=== PATIENT | female | born 1955 | race American Indian/Alaskan Native ===

== ENCOUNTER 2018-04-01 08:18 | Outpatient (CLI) | payer BC ==
--- NOTE | 2018-04-01 11:28 | Ultrasound Report ---
ABDOMINAL ULTRASOUND: 04/01/18 08:18:00 CLINICAL: Epigastric pain and left upper quadrant abdominal pain. FINDINGS: High-resolution ultrasound demonstrates a normal liver with normal size, contour and overall echogenicity. No liver mass. Normal hepatic vasculature and inferior vena cava. Normal gallbladder and bile ducts. The gallbladder wall measures 2.0mm. The common bile duct measures 4.0 mm diameter. Normal pancreatic head and proximal body. The distal body and tail of pancreas are obscured by bowel gas. The proximal aorta measures 2.2 cm. The distal aorta is also obscured by bowel gas. A normal spleen measures 8.0 x 3.8 x 4.6cm. Normal kidneys with normal echogenicity and normal non-dilated renal collecting systems and ureters. The right kidney measures 10.1 x 4.5 x 5.2cm. The left kidney measures 9.9 x 5.9 x 4.8cm. No renal mass or calculus. No ascites or mass. IMPRESSION: Normal study.
== END 2018-04-01 08:19 | disposition home or self-care (01) ==
LOC: SPVWC 08:18
PROVIDERS: ATTEND Internal Medicine Gastroenterology
DX: K30 Functional dyspepsia (principal); R10.12 Left upper quadrant pain
CPT/HCPCS: 76700